=== PATIENT | female | born 1930 | race Caucasian/White ===

== ENCOUNTER 2016-03-04 08:59 | Inpatient (IN) | payer OTHER ==
[~2016-03-04] VITALS: Ht 167.6 cm; Wt 74.4 kg
--- NOTE | ~2016-03-04 | EKG ---
[address] [address] ELECTROCARDIOGRAM REPORT Name: YADIEL SANCHEZ Room #: 170- ADM IN M.R.#: [id number] Admission: 03/04/16 Attend Phys: Kodak Lin MD Discharge: Date of : 32 Report #: [id number] THIS REPORT FOR: //name// [facility] ED Test Date: 2016-03-04 Test Time: 12:34:25 Pat Name: YADIEL SANCHEZ Department: Room: 170 2 Gender: F Client Relationship Consultant: rachel : 1930 Requested By: Stevo Bazzi Order Number: [id number] MD: Sergio Amor Measurements Intervals [place] Rate: 53 P: 64 IN: 204 QRS: -24 QRSD: 99 T: 40 QT: 413 QTc: 388 Interpretive Statements Sinus rhythm Borderline left axis deviation No previous ECG available for comparison Electronically Signed On 03-04-2016 16:11:33 DAM TENDER by Sergio Amor [email or web address] <ELECTRONICALLY SIGNED> By: Sergio Amor MD 03/04/16 1611 1234 1234 Sergio Amor MD /VERONICA
[~2016-03-04 08:59] MED LIST: ACETAMINOPHEN325 M1; ACID CONTROL20 MG; ACTONEL 35 MG35 M1 PO; ACYCLOVIR 400400 MG; ACYCLOVIR 800800 MG PO; ALENDRONATE SOD70 MG PO; AMINO-OPTI-C1000 MG; AMINO-OPTI-C1000 MG PO; AMITRIPTYLINE H25 M2 PO; AMLODIPINE BESYL5 MG PO; ARGINAID PO; ASPIR 8181 MG PO; ASPIRIN81 M2 PO; ATENOLOL 25 MG25 M1 PO; ATENOLOL 50 MG50 M1 PO; ATIVAN0.5 MG PO; B COMPLEX PO; B COMPLEX-VITA1 EACH PO; B12INJ PO; BAYER CHEWABLE81 MG PO; BYSTOLIC 5 MG5 M1 PO; CLEOCIN HCL150 MG PO; CLOBETASOL EMOL15 GM; CLONIDINE0.1 PO; COLACE100 MG; CRANBERRY400 MG PO; CYCLOBENZAPRINE5 MG PO; DILTIAZEM ER180 M1 PO; DONEPEZIL HCL5 MG PO; DOXYCYCLINE 10100 MG PO; ENDOCET 5-3251 EACH PO; ENOXAPARIN40 MG/0.1 SUBQ; ENOXAPARIN60 MG/0.6 SUBQ; FENOFIBRATE160 MG PO; FOSAMAX 70 MG T70 MG PO; GLUCOPHAGE XR500 MG PO; GLUCOPHAGE1000 MG PO; GLUCOSAMINE-MS1 EAC3 PO; INDERAL 20 MG T20 M1 PO; KETODAN 2% FOA554 GM; LISINOPRIL5 MG PO; LOMOTIL TABLET1 EACH PO; LORAZEPAM 1 MG T1 M1 PO; LOVAZA1000 MG; LOVAZA1000 MG PO; LUTEIN20 M1 PO; METFORMIN HCL500 MG PO; METHOCARBAMOL PO; MILK THISTLE200 M1 PO; MIRTAZAPINE7.5 MG PO; MUCINEX TA600 MG/TA2 PO; NEURONTIN 300300 M1 PO; NEURONTIN600 MG PO; NIZORAL120 ML; NOVOLOG100 UNIT/1; ONE DAILY COMP1 EAC1 PO; PANTOPRAZOLE SO40 M1 PO; PERCOCET 5-3251 EACH; PERCOCET 5-3251 EACH PO; PHENERGAN 25 MG25 M1 PO; PRILOSEC 20 MG20 MG PO; PRO-STAT LIQUID30 ML PO; PROBIOTIC1 EAC1 PO; REMERON15 MG; REMERON15 MG PO; RISPERDAL0.5 MG PO; ROBAXIN 750 MG750 M1 PO; ROXICODONE5 M1 PO; SANTYL OINTMENT30 G1 TOP; SSD CREAM 1% 5050 G1 TOP; TAMIFLU75 MG PO; TESSALON PERLE100 M1 PO; THERA-M CAPLET1 EACH PO; TRAMADOL 50 MG50 MG PO; TRIAMTERENE-HC1 EAC2 PO; VITAMIN D-32000 UNIT PO; VITAMINC500 PO; VOLTAREN GEL 1100 G2 TOP; WAL-FEX ALLERG180 MG PO; ZETIA10 MG PO; [UNRECOGNIZED DRUG - OTHER]; [UNRECOGNIZED DRUG - OTHER] PO
[2016-03-04 09:00] VITALS: BP 123/69
[2016-03-04 11:40] LABS: ABSOLUTE NEUTROPHILS 5.2 thou/uL (1.4-8.2); BASOPHILS 0.8 % (0.0-2.0); HEMATOCRIT 35.7 % (37.0-47.0); HEMOGLOBIN 12.1 gm/dL (12.0-15.0); LYMPHOCYTES 17.3 % (24.0-44.0); MCHC 33.8 % (28.0-37.0); MCV 97.7 fL (80.0-100.0); MONOCYTES 6.8 % (1.0-8.0); PLATELET COUNT 207 thou/uL (150-400); POLYS 72.1 % (36.0-66.0); RBC 3.66 mil/uL (4.20-5.00); RDW 14.3 % (10.5-14.5); WBC 7.3 thou/uL (4.0-11.0)
[2016-03-04 11:42] LABS: MANUAL DIFF NO
[2016-03-04 11:47] LABS: CALCIUM 10.1 mg/dL (8.5-10.1); CREATININE 1.5 mg/dL (0.6-1.3)
[2016-03-04 11:48] LABS: POTASSIUM 6.2 mmol/L (3.5-5.1)
[2016-03-04 11:52] VITALS: BP 157/58
[2016-03-04 12:16] LABS: CALCIUM 9.8 mg/dL (8.5-10.1); CREATININE 1.5 mg/dL (0.6-1.3)
[2016-03-04 12:22] LABS: POTASSIUM 6.1 mmol/L (3.5-5.1)
[2016-03-04 13:56] LABS: URINE BILIRUBIN NEGATIVE (Negative); URINE BLOOD NEGATIVE (Negative); URINE COLOR YELLOW; URINE GLUCOSE-RANDOM* NEGATIVE (Negative); URINE KETONES NEGATIVE (Negative); URINE NITRITE NEGATIVE (Negative); URINE PROTEIN (DIPSTICK) NEGATIVE (Negative); URINE UROBILINOGEN 0.2 E.U./dl (0.2-1.0)
[2016-03-04 16:28] VITALS: BP 136/58
[2016-03-04 16:45] VITALS: BP 166/77
[2016-03-04 20:53] VITALS: BP 138/61
[2016-03-05 00:02] VITALS: BP 136/50
[2016-03-05 04:38] VITALS: BP 156/64
[2016-03-05 05:28] LABS: HEMATOCRIT 33.9 % (37.0-47.0); HEMOGLOBIN 11.4 gm/dL (12.0-15.0); MCH 33.6 pg (26.0-34.0); MCHC 33.7 % (28.0-37.0); MCV 99.5 fL (80.0-100.0); RBC 3.4 mil/uL (4.20-5.00); RDW 14.7 % (10.5-14.5); WBC 4.3 thou/uL (4.0-11.0)
[2016-03-05 05:38] LABS: CALCIUM 9.6 mg/dL (8.5-10.1); CREATININE 1.3 mg/dL (0.6-1.3); POTASSIUM 5.5 mmol/L (3.5-5.1)
[2016-03-05] MEDS ORDERED: TRAMADOL 50 MG50 MG PO (05:58)
[2016-03-05] MEDS ORDERED: CHLORTHALIDONE25 MG PO (06:03)
[2016-03-05 08:00] VITALS: BP 134/52
[2016-03-05] MEDS ORDERED: PERCOCET PO (10:26)
[2016-03-05 12:00] VITALS: BP 128/44
== END 2016-03-05 17:00 | disposition home or self-care (01) | DRG 551 ==
LOC: ER 08:59 → EROBS 11:37 → 4S 11:37
PROVIDERS: Hospitalist; Nurse Practitioner
DX: M54.40 Lumbago with sciatica, unspecified side (principal); N17.0 Acute kidney failure with tubular necrosis; M54.9 Dorsalgia, unspecified; M19.90 Unspecified osteoarthritis, unspecified site; E11.9 Type 2 diabetes mellitus without complications; Z96.653 Presence of artificial knee joint, bilateral; E87.5 Hyperkalemia; I10 Essential (primary) hypertension; M47.816 Spondylosis without myelopathy or radiculopathy, lumbar region; W18.39XA Other fall on same level, initial encounter; Z79.899 Other long term (current) drug therapy; Z88.0 Allergy status to penicillin; Z88.6 Allergy status to analgesic agent; Z88.4 Allergy status to anesthetic agent; Z88.1 Allergy status to other antibiotic agents; Z91.040 Latex allergy status; Z88.8 Allergy status to other drugs, medicaments and biological substances; Z91.018 Allergy to other foods; Z87.891 Personal history of nicotine dependence; Y93.89 Activity, other specified; Y92.89 Other specified places as the place of occurrence of the external cause; Y99.8 Other external cause status
CPT/HCPCS: 10102

== ENCOUNTER 2016-04-27 12:28 | Emergency (ER) | payer OTHER ==
[~2016-04-27] VITALS: Ht 160 cm; Wt 74.8 kg
--- NOTE | ~2016-04-27 | EKG ---
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
--- NOTE | ~2016-04-27 | EKG ---
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
[~2016-04-27 12:28] MED LIST changes: +CHLORTHALIDONE25 MG PO; +PERCOCET PO
[2016-04-27 13:34] LABS: ABSOLUTE NEUTROPHILS 4.3 thou/uL (1.4-8.2); BASOPHILS 0.6 % (0.0-2.0); EOSINOPHILS 1.8 % (0.0-3.0); HEMATOCRIT 32.2 % (37.0-47.0); HEMOGLOBIN 10.9 gm/dL (12.0-15.0); LYMPHOCYTES 12.2 % (24.0-44.0); MCH 33.1 pg (26.0-34.0); MCHC 33.9 g/dL (28.0-37.0); MCV 97.8 fL (80.0-100.0); MONOCYTES 7.2 % (1.0-8.0); PLATELET COUNT 188 thou/uL (150-400); POLYS 78.2 % (36.0-66.0); RBC 3.29 mil/uL (4.20-5.00); RDW 13.6 % (10.5-14.5); WBC 5.5 thou/uL (4.0-11.0)
[2016-04-27 13:35] LABS: MANUAL DIFF NO
[2016-04-27 13:42] LABS: ANION GAP 7 mmol/L (7-16); BUN 32 mg/dL (7-18); CALCIUM 9.1 mg/dL (8.5-10.1); CHLORIDE 101 mmol/L (98-107); CO2 27 mmol/L (21-32); CREATININE 1.4 mg/dL (0.6-1.3); GLUCOSE 142 mg/dL (70-99); SODIUM 135 mmol/L (136-145)
[2016-04-27 13:49] LABS: ALBUMIN 3.4 g/dL (3.4-5.0); ALKALINE PHOSPHATASE 43 U/L (46-116); SGOT 35 U/L (15-37); SGPT 29 U/L (30-65); TOTAL BILIRUBIN 0.6 mg/dL (<0.1-1.0); TOTAL PROTEIN 7.2 g/dL (6.4-8.2); TROPONIN-I < 0.04 ng/mL (<0.04-0.07)
== END 2016-04-27 17:12 ==
LOC: ER 12:28
PROVIDERS: Emergency Medicine
DX: R07.9 Chest pain, unspecified (principal); E11.9 Type 2 diabetes mellitus without complications; Z88.5 Allergy status to narcotic agent; Z88.1 Allergy status to other antibiotic agents; Z91.040 Latex allergy status; Z88.0 Allergy status to penicillin; Z88.4 Allergy status to anesthetic agent; Z88.2 Allergy status to sulfonamides; Z87.891 Personal history of nicotine dependence

== ENCOUNTER 2016-05-12 18:46 | Emergency (ER) | payer OTHER ==
[~2016-05-12] VITALS: Ht 167.6 cm; Wt 76.2 kg
== END 2016-05-12 20:40 | disposition home or self-care (01) ==
LOC: ER 18:46
DX: S01.01XA Laceration without foreign body of scalp, initial encounter (principal); M25.512 Pain in left shoulder; E11.9 Type 2 diabetes mellitus without complications; Z96.653 Presence of artificial knee joint, bilateral; Z88.1 Allergy status to other antibiotic agents; Z91.040 Latex allergy status; Z88.0 Allergy status to penicillin; Z88.5 Allergy status to narcotic agent; Z88.8 Allergy status to other drugs, medicaments and biological substances; Z91.018 Allergy to other foods; Z88.4 Allergy status to anesthetic agent; Z87.891 Personal history of nicotine dependence; W01.198A Fall on same level from slipping, tripping and stumbling with subsequent striking against other object, initial encounter; Y93.01 Activity, walking, marching and hiking; Y92.89 Other specified places as the place of occurrence of the external cause; Y99.8 Other external cause status

== ENCOUNTER 2016-09-12 07:53 | Emergency (ER) | payer OTHER ==
[~2016-09-12] VITALS: Ht 167.6 cm; Wt 77.1 kg
[2016-09-12 08:19] LABS: ABSOLUTE NEUTROPHILS 2.2 thou/uL (1.4-8.2); BASOPHILS 1.3 % (0.0-2.0); EOSINOPHILS 3.2 % (0.0-3.0); HEMATOCRIT 34.1 % (37.0-47.0); HEMOGLOBIN 11.6 gm/dL (12.0-15.0); LYMPHOCYTES 28.7 % (24.0-44.0); MCH 33.3 pg (26.0-34.0); MCHC 34.1 g/dL (28.0-37.0); MCV 97.8 fL (80.0-100.0); MONOCYTES 10.4 % (1.0-8.0); PLATELET COUNT 190 thou/uL (150-400); POLYS 56.4 % (36.0-66.0); RBC 3.49 mil/uL (4.20-5.00); WBC 3.9 thou/uL (4.0-11.0)
[2016-09-12 08:20] LABS: MANUAL DIFF NO
[2016-09-12 08:31] LABS: CALCIUM 10.3 mg/dL (8.5-10.1); CREATININE 1.4 mg/dL (0.6-1.0); POTASSIUM 4.2 mmol/L (3.5-5.1)
[2016-09-12 09:24] LABS: URINE BILIRUBIN NEGATIVE (Negative); URINE BLOOD NEGATIVE (Negative); URINE COLOR YELLOW; URINE GLUCOSE-RANDOM* NEGATIVE (Negative); URINE KETONES NEGATIVE (Negative); URINE NITRITE NEGATIVE (Negative); URINE PROTEIN (DIPSTICK) NEGATIVE (Negative); URINE UROBILINOGEN 0.2 E.U./dl (0.2-1.0)
== END 2016-09-12 08:38 | disposition home or self-care (01) ==
LOC: ER 07:53
PROVIDERS: Emergency Medicine
DX: G44.209 Tension-type headache, unspecified, not intractable (principal); M54.2 Cervicalgia; E11.9 Type 2 diabetes mellitus without complications; F10.99 Alcohol use, unspecified with unspecified alcohol-induced disorder; Z96.653 Presence of artificial knee joint, bilateral; Z88.5 Allergy status to narcotic agent; Z88.1 Allergy status to other antibiotic agents; Z91.040 Latex allergy status; Z88.2 Allergy status to sulfonamides; Z88.0 Allergy status to penicillin; Z88.4 Allergy status to anesthetic agent; Z88.8 Allergy status to other drugs, medicaments and biological substances; Z87.891 Personal history of nicotine dependence

== ENCOUNTER 2016-09-23 12:18 | Emergency (ER) | payer OTHER ==
[~2016-09-23] VITALS: Ht 167.6 cm; Wt 76.7 kg
[2016-09-23 12:43] LABS: HEMATOCRIT 32.1 % (37.0-47.0); HEMOGLOBIN 10.6 gm/dL (12.0-15.0); MCH 32.9 pg (26.0-34.0); MCHC 33.2 g/dL (28.0-37.0); MCV 99.2 fL (80.0-100.0); PLATELET COUNT 147 thou/uL (150-400); RBC 3.23 mil/uL (4.20-5.00); WBC 3.6 thou/uL (4.0-11.0)
[2016-09-23 12:45] LABS: MANUAL DIFF YES
[2016-09-23 12:52] LABS: CALCIUM 9.6 mg/dL (8.5-10.1); CREATININE 1.3 mg/dL (0.6-1.0); POTASSIUM 4.2 mmol/L (3.5-5.1)
[2016-09-23 13:30] LABS: ABSOLUTE NEUTROPHILS 1.7 thou/uL (1.4-8.2); ANISOCYTOSIS SLIGHT; TOTAL CELL COUNT 100
[2016-09-23] MEDS ORDERED: REGLAN 10 MG TA10 MG PO (14:00)
== END 2016-09-23 14:32 | disposition home or self-care (01) ==
LOC: ER 12:18
PROVIDERS: Physician Assistant
DX: R51 Headache (principal); E11.9 Type 2 diabetes mellitus without complications; F10.99 Alcohol use, unspecified with unspecified alcohol-induced disorder; Z90.49 Acquired absence of other specified parts of digestive tract; Z96.653 Presence of artificial knee joint, bilateral; Z87.891 Personal history of nicotine dependence; Z88.5 Allergy status to narcotic agent; Z88.1 Allergy status to other antibiotic agents; Z91.040 Latex allergy status; Z91.018 Allergy to other foods; Z88.0 Allergy status to penicillin; Z91.048 Other nonmedicinal substance allergy status; Z88.4 Allergy status to anesthetic agent

== ENCOUNTER 2016-11-01 13:34 | Inpatient (IN) | payer OTHER ==
[~2016-11-01] VITALS: Ht 167.6 cm; Wt 79.4 kg
[~2016-11-01 13:34] MED LIST changes: +REGLAN 10 MG TA10 MG PO
[2016-11-01 13:35] VITALS: BP 161/62
[2016-11-01 14:09] LABS: HEMOGLOBIN 12.1 gm/dL (12.0-15.0); MANUAL DIFF YES; MCH 32.6 pg (26.0-34.0); MCHC 33.6 g/dL (28.0-37.0); MCV 97.1 fL (80.0-100.0); PLATELET COUNT 190 thou/uL (150-400); RBC 3.71 mil/uL (4.20-5.00); RDW 13.2 % (10.5-14.5)
[2016-11-01 14:16] LABS: URINE BILIRUBIN NEGATIVE (Negative); URINE BLOOD NEGATIVE (Negative); URINE COLOR YELLOW; URINE GLUCOSE-RANDOM* NEGATIVE (Negative); URINE KETONES NEGATIVE (Negative); URINE NITRITE NEGATIVE (Negative); URINE PROTEIN (DIPSTICK) 2+ (Negative); URINE SPECIFIC GRAVITY 1.015 (1.003-1.035); URINE UROBILINOGEN 0.2 E.U./dl (0.2-1.0)
[2016-11-01 14:17] LABS: CREATININE 1.3 mg/dL (0.6-1.0)
[2016-11-01 14:21] LABS: BACTERIA None Seen /HPF (None Seen); CASTS None Seen /LPF (None Seen); CRYSTALS None Seen /LPF (None Seen); SQUAMOUS 0-3 Few /LPF (0-3); URINE RBC None Seen /HPF (0-2); URINE WBC 0-5 Rare /HPF (0-5)
[2016-11-01 14:23] LABS: DIRECT BILIRUBIN 0.2 mg/dL (<0.1-0.3); TOTAL BILIRUBIN 0.9 mg/dL (<0.1-1.0); TOTAL PROTEIN 8.2 g/dL (6.4-8.2)
[2016-11-01 14:28] LABS: ABSOLUTE NEUTROPHILS 11.4 thou/uL (1.4-8.2); TOTAL CELL COUNT 100
[2016-11-01 17:00] VITALS: BP 158/62
[2016-11-01 18:04] VITALS: BP 173/83
[2016-11-01 20:51] VITALS: BP 172/73
[2016-11-02 04:15] VITALS: BP 130/55
[2016-11-02 06:40] LABS: HEMATOCRIT 31.6 % (37.0-47.0); HEMOGLOBIN 10.8 gm/dL (12.0-15.0); MCH 33.2 pg (26.0-34.0); MCHC 34.1 g/dL (28.0-37.0); MCV 97.4 fL (80.0-100.0); RBC 3.25 mil/uL (4.20-5.00); RDW 13.4 % (10.5-14.5); WBC 11.6 thou/uL (4.0-11.0)
[2016-11-02 06:54] LABS: CALCIUM 9.1 mg/dL (8.5-10.1); CREATININE 1.2 mg/dL (0.6-1.0); POTASSIUM 3.6 mmol/L (3.5-5.1)
[2016-11-02 08:34] VITALS: BP 144/95
[2016-11-02 16:45] VITALS: BP 128/50
[2016-11-02 20:35] VITALS: BP 146/65
[2016-11-03 05:16] VITALS: BP 150/69
[2016-11-03 08:00] VITALS: BP 170/65
[2016-11-03 16:00] VITALS: BP 160/62
[2016-11-03 19:59] VITALS: BP 163/52
[2016-11-04 04:22] VITALS: BP 157/68
[2016-11-04 04:58] LABS: ABSOLUTE NEUTROPHILS 5.8 thou/uL (1.4-8.2); BASOPHILS 0.3 % (0.0-2.0); LYMPHOCYTES 16.1 % (24.0-44.0); MCH 32.9 pg (26.0-34.0); MCHC 33.5 g/dL (28.0-37.0); MCV 98.1 fL (80.0-100.0); MONOCYTES 7.9 % (1.0-8.0); PLATELET COUNT 182 thou/uL (150-400); POLYS 73.7 % (36.0-66.0); RBC 3.36 mil/uL (4.20-5.00); RDW 13.2 % (10.5-14.5); WBC 7.9 thou/uL (4.0-11.0)
[2016-11-04 05:01] LABS: MANUAL DIFF NO
[2016-11-04 05:05] LABS: CALCIUM 9.3 mg/dL (8.5-10.1); CREATININE 0.8 mg/dL (0.6-1.0); POTASSIUM 3.4 mmol/L (3.5-5.1)
[2016-11-04 08:00] VITALS: BP 147/63
[2016-11-04 12:58] VITALS: BP 142/58
[2016-11-04 16:00] VITALS: BP 138/51
[2016-11-04 19:45] VITALS: BP 163/57
[2016-11-04 20:05] VITALS: BP 152/95
[2016-11-05 04:40] VITALS: BP 170/64
[2016-11-05 05:44] LABS: POTASSIUM 3.6 mmol/L (3.5-5.1)
[2016-11-05 08:00] VITALS: BP 143/52
[2016-11-05] MEDS ORDERED: PROBIOTIC1 EAC1 PO (12:08)
[2016-11-05] MEDS ORDERED: COLACE100 MG PO (12:08)
[2016-11-05] MEDS ORDERED: MIRALAX17 GM PO (12:08)
[2016-11-05] MEDS ORDERED: DOXYCYCLINE 10100 MG PO (12:08)
[2016-11-05] MEDS ORDERED: CEFUROXIME250 MG PO (12:14)
[2016-11-05] MEDS ORDERED: MUCINEX600 MG PO (12:16)
[2016-11-05 12:22] VITALS: BP 143/52
[2016-11-05 14:04] VITALS: BP 143/52
[2016-11-05 14:14] VITALS: BP 143/52
== END 2016-11-05 15:27 | disposition home health service (06) | DRG 871 ==
LOC: ER 13:34 → 4S 15:41 → EROBS 15:41 → 4S 17:00
PROVIDERS: Internal Medicine Endocrinology, Diabetes & Metabolism; Nurse Practitioner
DX: A41.9 Sepsis, unspecified organism (principal); J18.9 Pneumonia, unspecified organism; G92 Toxic encephalopathy; Z96.653 Presence of artificial knee joint, bilateral; F03.90 Unspecified dementia, unspecified severity, without behavioral disturbance, psychotic disturbance, mood disturbance, and anxiety; I10 Essential (primary) hypertension; E87.6 Hypokalemia; M48.00 Spinal stenosis, site unspecified; E11.9 Type 2 diabetes mellitus without complications; Z88.6 Allergy status to analgesic agent; Z88.0 Allergy status to penicillin; Z90.49 Acquired absence of other specified parts of digestive tract; Z88.2 Allergy status to sulfonamides; Z88.8 Allergy status to other drugs, medicaments and biological substances; Z91.040 Latex allergy status; Z87.891 Personal history of nicotine dependence; Z79.82 Long term (current) use of aspirin; Z79.899 Other long term (current) drug therapy
CPT/HCPCS: 10100

== ENCOUNTER → 2017-06-20 | Outpatient (CLI) | payer OTHER ==
[~2017-06-20] VITALS: Ht 165.1 cm; Wt 80.2 kg
[~2017-06-20] MED LIST changes: +AMLODIPINE BESY10 MG PO; -AMLODIPINE BESYL5 MG PO; +CEFUROXIME250 MG PO; +COLACE100 MG PO; +DEMADEX20 MG PO; +LASIX 40 MG TAB40 M2 PO; +MIRALAX17 GM PO; +MUCINEX600 MG PO; +OMEPRAZOLE 20 M20 M1 PO; +ONDANSETRON HCL4 M2 PO; +OXYCONTIN15 MG PO; +POTASSIUM20 PO
--- NOTE | ~2017-06-20 | HPC ---
[facility] [place] [address] PAIN MANAGEMENT CONSULTATION Name: YADIEL SANCHEZ Room #: REG [facility] Lamine#: [id number] Admission: 06/20/17 Attend Phys: Renny Campos DO Discharge: Date of : 32 Report #: [id number] THIS REPORT FOR: //name// CC: CESARIO physician/PCP Renny Campos DATE OF SERVICE: 06/20/2017 The patient is an 87-year-old female, somewhat lost to follow up having been seen back in 10/2015. At that time, she was treated for both cervical and lumbar radiculopathy, spinal stenosis, DJD affecting hands and knees. In the interval since we saw her, she was admitted to the hospital with infection, encephalitis and dementia 11/01/2016 through 11/05/2016. She returns to Pain Clinic today noting increasing pain in her right knee without antecedent trauma and overuse. She is status post bilateral total knee arthroplasty, now greater than a decade ago. PHYSICAL EXAMINATION: Notes a pleasant 87-year-old female. She appears a little more lucid and oriented. BMI is 29.4 kg/m2, blood pressure is 159/72, pulse 61, respirations 20, room air oxygen saturation 97%. Rates the pain 8 on a VAS. She has well-healed surgical scars compatible with bilateral total knee arthroplasties. She has pain in the right knee with range of motion. There is no ballotable edema. There is a little pain with palpation in the superior medial aspect of the knee, though I do not discern any obvious visual abnormalities here. No warmth or erythema is noted. No ballotable edema is noted. Distal strength is symmetric. ASSESSMENT: Right knee pain in a patient status post bilateral total knee arthroplasties, acute onset of pain without antecedent trauma or overuse. RECOMMENDATIONS: We will get x-rays of the right knee AP and lateral to see if there is any obvious loosening of the arthroplasty. If the radiographic exam is fairly unremarkable, we may consider a diagnostic genicular nerve block (proximal medial, proximal lateral, and distal medial genicular nerve). If this gives transient relief, we will consider RFL of same. If, however, she has any abnormalities noted on the x-ray, we will refer to [facility] for consideration for surgical revision. She has prior seen [facility] in regards to her knees, though both knee arthroplasties were done back in [place] now some 10 years ago. Discharged in good and stable condition after approximately 20 [place] [address] PAIN MANAGEMENT CONSULTATION Name: YADIEL SANCHEZ [id number] Admission: 06/20/17 Attend Phys: Renny Campos DO Discharge: Date of : 32 Report #: [id number] with the patient reviewing therapeutic options, interval history, and discussing possible treatments scenarios. <ELECTRONICALLY SIGNED> By: Renny Campos DO 06/24/17 07 1236 2238 Renny Campos DO /m[place]oacano
[2017-06-20 10:23] VITALS: BP 159/72
== END ==
LOC: PAIN 05:38
DX: I70.201 Unspecified atherosclerosis of native arteries of extremities, right leg (principal); M48.00 Spinal stenosis, site unspecified; M19.041 Primary osteoarthritis, right hand; M19.042 Primary osteoarthritis, left hand; Z96.651 Presence of right artificial knee joint

== ENCOUNTER → 2017-07-18 | Outpatient (CLI) | payer OTHER ==
[~2017-07-18] VITALS: Ht 165.1 cm; Wt 81.1 kg
--- NOTE | ~2017-07-18 | HPC ---
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 She was last seen in pain clinic on 07/04/2017. We talked about moving forward with genicular nerve block to help with ongoing nerve pain. She presents to pain clinic today for diagnostic block. She notes pain is worse in the right, rates her subjective pain score is 6 on a VAS. She wished to proceed with genicular nerve block today. We will start on the right side. Follow up next week for reevaluation, consideration for left-sided injection versus RFL of the right side. ASSESSMENT: Chronic knee pain status post total knee arthroplasty. PROCEDURE: Genicular nerve block on the right x 3 (superior medial, superior lateral and proximal aspect of the right medial tibia genicular nerves). DESCRIPTION OF PROCEDURE: After written informed consent was obtained, the patient was placed in supine position on the fluoroscopy suite with a bolster into the right knee. Wide surgical prep and drape was accomplished. Skin wheal with Xylocaine was raised x 3. A 22-gauge stylet needle was placed to contact the distal lateral diaphysis of the femur. A second needle was placed to contact the distal medial diaphysis of the femur. A third needle was placed to contact the proximal medial diaphysis of the tibia. AP projection showed good needle placement adjacent to the bone. Lateral projections showed good needle placement at mid shaft of the femur and tibia respectively. Once a good needle position was assured, 1 mL of a 50:50 mix of 0.5% preservative-free bupivacaine, plus 1.5% preservative-free Xylocaine with 1:200,000 epinephrine was injected. Needle was removed, area was cleansed, Band-Aid was applied. The patient was allowed to ambulate to recovery, monitored for an appropriate period of time. She noted good 50% improvement of baseline pain, pain decreased from 6-3 on a VAS. We asked her to chart her pain score over the next several hours and leave that message on the nurse line. Given 50% relief, we are inclined to move forward with radiofrequency neurolysis. We will defer to the patient if she wants to do the left diagnostic block first or proceed with RFL on the right side at next visit. <ELECTRONICALLY SIGNED> By: Renny Campos DO 07/19/17 0727 1238 1717 Renny Campos DO /nt
[2017-07-18 10:20] VITALS: BP 156/79
== END | disposition home or self-care (01) ==
LOC: PAIN 07-12 11:52
DX: M25.561 Pain in right knee (principal); G89.29 Other chronic pain; M19.041 Primary osteoarthritis, right hand; M19.042 Primary osteoarthritis, left hand; M54.16 Radiculopathy, lumbar region; I10 Essential (primary) hypertension; E11.9 Type 2 diabetes mellitus without complications; N28.9 Disorder of kidney and ureter, unspecified; Z96.651 Presence of right artificial knee joint; Z98.890 Other specified postprocedural states; Z87.891 Personal history of nicotine dependence; Z79.899 Other long term (current) drug therapy; Z88.0 Allergy status to penicillin; Z88.8 Allergy status to other drugs, medicaments and biological substances; Z91.040 Latex allergy status; Z79.82 Long term (current) use of aspirin

== ENCOUNTER 2017-11-17 10:25 | Inpatient (IN) | payer OTHER ==
[2017-11-17] VITALS (7 sets, daily range): BP systolic 148–178; BP diastolic 66–101
[~2017-11-17] VITALS: Ht 167.6 cm; Wt 70.3 kg
--- NOTE | ~2017-11-17 | HC ---
[facility] [place] [address] [address] [place] [address] CONSULTATION Name: YADIEL SANCHEZ Room #: 207-P [facility] IN M.R.#: [id number] Admission: 11/17/17 Attend Phys: Augustin Valentin MD Discharge: 11/18/17 Date of : 32 Report #: [id number] THIS REPORT FOR: //name// CC: CESARIO physician/PCP Augustin Valentin DATE OF SERVICE: 11/18/2017 REASON FOR CONSULTATION: Palpitations. HISTORY OF PRESENT ILLNESS: The patient is an 87-year-old woman who is a patient of Dr. Portillo and Dr. Devante Ann. Her history includes hypertension, diabetes, diastolic heart failure, and paroxysmal supraventricular tachycardia. She was in adventism yesterday and felt "not right." She was seen in the Emergency Department where she was found to be in atrial fibrillation. After treatment with a bolus of Cardizem, she converted pharmacologically and has felt better, back to normal since. She denies chest heaviness or pressure. She reports diffuse total body aches and pains related to her arthritis for which she takes tramadol. She denies orthopnea or paroxysmal nocturnal dyspnea. No history of myocardial infarction, prior stress study in 2013 was nonischemic. ALLERGIES: INCLUDE CIPRO, DOXYCYCLINE, LATEX, PENICILLIN, SULFA, ADHESIVE. MEDICATIONS: Amlodipine 10 mg daily, fenofibrate, metformin, Bystolic 10 mg daily, omeprazole 20 mg daily, torsemide 20 mg daily, potassium 20 mEq daily, Flomax 0.4 mg daily, and tramadol. PAST MEDICAL HISTORY: Medical records have been reviewed and include a history of gait instability with history of falls, reflux disease, hypertension. Actually, she had a nonischemic stress study in 05/2013. Echocardiogram in April demonstrated normal ejection fraction, mild mitral regurgitation, history of type 2 diabetes, PSVT treated with IV adenosine previously, cervical fusion, cholecystectomy. SOCIAL HISTORY: She is a former smoker, lives at [place]. FAMILY HISTORY: Unremarkable for premature coronary artery disease. REVIEW OF SYSTEMS: All systems negative except as that noted above. PHYSICAL EXAMINATION: GENERAL: Reveals a pleasant woman in no distress. VITAL SIGNS: Blood pressure is 160/70, heart rate 78 and regular. She is afebrile. HEENT: There are neither xanthelasma, subcutaneous xanthomata, oral mucosal or digital cyanosis or kyphoscoliosis present. [facility] [address] [place] [address] CONSULTATION Name: YADIEL SANCHEZ Room #: 207-P [facility] IN M.R.#: [id number] Admission: 11/17/17 Attend Phys: Augustin Valentin MD Discharge: 11/18/17 Date of : 32 Report #: [id number] CHEST: Clear to auscultation and percussion. CARDIOVASCULAR: Regular rate and rhythm with a soft systolic murmur at the base. ABDOMEN: Soft and nontender. EXTREMITIES: Without cyanosis or clubbing. Radial pulses are 2+. NEUROLOGIC: She is alert with a nonfocal exam. EKGs, atrial fibrillation with poor R-wave progression. LABORATORY DATA: Sodium 137, potassium 4.0, creatinine 1.5. Troponin 0. White count 5.5, hemoglobin 13, hematocrit 38, platelet count 196. Chest x-ray is normal. IMPRESSION: 1. Paroxysmal atrial fibrillation, now sinus. 2. Hypertension. 3. Diabetes. 4. Dementia. 5. Nonischemic stress study 05/2017; normal ejection fraction. RECOMMENDATIONS: 1. Change from amlodipine to Cardizem. 2. With the patient's memory problems and history of falls with gait instability, I favor aspirin over long-term anticoagulant therapy. At this point, no further testing is needed. Thyroid function studies have been ordered. Thank you for asking me to participate in her care. <ELECTRONICALLY SIGNED> By: Kulwinder Yee MD, FACC 11/26/17 1630 0734 56 Kulwinder Yee MD, FACC /nt
--- NOTE | ~2017-11-17 | EKG ---
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: cw : 1930 Requested By: Jocelyne Velazquez Order Number: [id number] MD: Kulwinder Yee Measurements Intervals [place] Rate: 104 P: NE: QRS: -21 QRSD: 98 T: 70 QT: 347 QTc: 457 Interpretive Statements Atrial fibrillation Borderline left axis deviation Poor R wave progression Compared to ECG 04/27/2016 14:29:53 Atrial fibrillation has replaced sinus rhythm Electronically Signed On 11-17-2017 11:35:18 CDT by Kulwinder Yee [email or web address] <ELECTRONICALLY SIGNED> By: Kulwinder Yee MD, [facility] 11/17/17 1135 1032 1032 Kulwinder Yee MD, FACC /EPI
--- NOTE | ~2017-11-17 | EKG ---
[address] [address] ELECTROCARDIOGRAM REPORT Name: YADIEL SANCHEZ Room #: 207-P ADM IN M.R.#: [id number] Admission: 11/17/17 Attend Phys: Augustin Valentin MD Discharge: Date of : 32 Report #: [id number] THIS REPORT FOR: //name// [facility] Test Date: 2017-11-18 Test Time: 07:32:24 Pat Name: YADIEL SANCHEZ Department: Room: 207 P Gender: F Title Camera Operator: : 1930 Requested By: Augustin Valentin Order Number: [id number] MD: Sergio Amor Measurements Intervals [place] Rate: 59 P: 66 [place]: 202 QRS: -25 QRSD: 104 T: 56 QT: 454 QTc: 450 Interpretive Statements Sinus rhythm Consider left atrial enlargement Borderline left axis deviation Compared to ECG 11/17/2017 10:32:41 Atrial fibrillation no longer present Poor R-wave progression no longer present Electronically Signed On 11-18-2017 8:24:11 CDT by Sergio Amor [email or web address] <ELECTRONICALLY SIGNED> By: Sergio Amor MD 11/18/1724 1 Sergio Amor MD /EPI
[2017-11-17 11:05] LABS: ABSOLUTE NEUTROPHILS 3.7 thou/uL (1.4-8.2); BASOPHILS 0.8 % (0.0-2.0); EOSINOPHILS 1.8 % (0.0-3.0); HEMATOCRIT 38.4 % (37.0-47.0); LYMPHOCYTES 22.2 % (24.0-44.0); MCH 32.9 pg (26.0-34.0); MCHC 33.8 g/dL (28.0-37.0); MCV 97.4 fL (80.0-100.0); MONOCYTES 7.7 % (1.0-8.0); PLATELET COUNT 196 thou/uL (150-400); POLYS 67.5 % (36.0-66.0); RBC 3.94 mil/uL (4.20-5.00); RDW 13.9 % (10.5-14.5); WBC 5.5 thou/uL (4.0-11.0)
[2017-11-17 11:09] LABS: ANION GAP 6 mmol/L (7-16); BUN 46 mg/dL (7-18); CALCIUM 10.5 mg/dL (8.5-10.1); CHLORIDE 98 mmol/L (98-107); CO2 31 mmol/L (21-32); CREATININE 1.5 mg/dL (0.6-1.0); GLUCOSE 153 mg/dL (74-106); SODIUM 135 mmol/L (136-145)
[2017-11-17 11:17] LABS: TROPONIN-I <0.06 ng/mL (<0.06)
[2017-11-17 11:48] LABS: URINE BILIRUBIN NEGATIVE (Negative); URINE BLOOD NEGATIVE (Negative); URINE CLARITY CLEAR; URINE COLOR YELLOW; URINE GLUCOSE-RANDOM* NEGATIVE (Negative); URINE KETONES NEGATIVE (Negative); URINE LEUKOCYTES-REFLEX NEGATIVE (Negative); URINE NITRITE-REFLEX NEGATIVE (Negative); URINE PROTEIN (DIPSTICK) 2+ (Negative); URINE SPECIFIC GRAVITY 1.015 (1.005-1.035); URINE UROBILINOGEN 0.2 E.U./dl (0.2-1.0)
[2017-11-17 12:01] LABS: CASTS None Seen /LPF (None Seen); SQUAMOUS 0-3 Few /LPF (0-3)
[2017-11-17 12:02] LABS: BACTERIA-REFLEX None Seen /HPF (None Seen); CRYSTALS None Seen /LPF (None Seen); URINE RBC 0-2 Rare /HPF (0-2); URINE WBC-REFLEX 0-5 Rare /HPF (0-5)
[2017-11-17] MEDS ORDERED: BYSTOLIC10 MG PO (15:03)
[2017-11-17] MEDS ORDERED: CRANBERRY400 MG PO (15:03)
[2017-11-17] MEDS ORDERED: NEURONTIN 300300 M1 PO (15:05)
[2017-11-17] MEDS ORDERED: ACIDOPHILUS1 EAC4 PO (15:06)
[2017-11-17] MEDS ORDERED: LASIX 40 MG TAB40 M2 PO (15:07)
[2017-11-17] MEDS ORDERED: METFORMIN HCL500 MG PO (15:08)
[2017-11-17] MEDS ORDERED: ROBAXIN 750 MG750 M1 PO ×2 (15:10→15:11)
[2017-11-17] MEDS ORDERED: REGLAN 10 MG TA10 MG PO (15:12)
[2017-11-17] MEDS ORDERED: OMEPRAZOLE20 M1 PO (15:13)
[2017-11-17] MEDS ORDERED: OMEGA-31000 M1 PO (15:13)
[2017-11-17] MEDS ORDERED: POTASSIUM20 PO (15:14)
[2017-11-17] MEDS ORDERED: FLOMAX0.4 MG PO (15:16)
[2017-11-17] MEDS ORDERED: PHENERGAN 25 MG25 M1 PO (15:16)
[2017-11-17] MEDS ORDERED: TRAMADOL 50 MG50 MG PO (15:17)
[2017-11-17] MEDS ORDERED: VOLTAREN GEL 1100 G1 TOP (15:19)
[2017-11-17] MEDS ORDERED: ONDANSETRON HCL4 M2 PO (15:20)
[2017-11-18 07:51] VITALS: BP 174/73
[2017-11-18] MEDS ORDERED: DILTIAZEM 24HR180 M1 PO (08:02)
[2017-11-18] MEDS ORDERED: COZAAR 50 MG TA50 MG PO (08:07)
[2017-11-18 09:12] VITALS: BP 174/73
[2017-11-18 11:28] VITALS: BP 159/108
== END 2017-11-18 11:32 | DRG 682 ==
LOC: ER 10:25 → 2N 12:25 → EROBS 12:25 → 2N 13:44 → ENTRNSPT 11-18 13:15 → EDTRNSPTSTS 11-18 13:54
PROVIDERS: Emergency Medicine
DX: N17.9 Acute kidney failure, unspecified (principal); E43 Unspecified severe protein-calorie malnutrition; I50.32 Chronic diastolic (congestive) heart failure; I13.0 Hypertensive heart and chronic kidney disease with heart failure and stage 1 through stage 4 chronic kidney disease, or unspecified chronic kidney disease; I48.0 Paroxysmal atrial fibrillation; Z96.653 Presence of artificial knee joint, bilateral; M19.90 Unspecified osteoarthritis, unspecified site; K21.9 Gastro-esophageal reflux disease without esophagitis; F03.90 Unspecified dementia, unspecified severity, without behavioral disturbance, psychotic disturbance, mood disturbance, and anxiety; G89.29 Other chronic pain; M48.061 Spinal stenosis, lumbar region without neurogenic claudication; N18.9 Chronic kidney disease, unspecified; E11.22 Type 2 diabetes mellitus with diabetic chronic kidney disease; I08.0 Rheumatic disorders of both mitral and aortic valves; Z60.2 Problems related to living alone; E11.43 Type 2 diabetes mellitus with diabetic autonomic (poly)neuropathy; K31.84 Gastroparesis; T50.2X5A Adverse effect of carbonic-anhydrase inhibitors, benzothiadiazides and other diuretics, initial encounter; Z79.899 Other long term (current) drug therapy; Z79.82 Long term (current) use of aspirin; Z88.8 Allergy status to other drugs, medicaments and biological substances; Z88.2 Allergy status to sulfonamides; Z91.041 Radiographic dye allergy status; Z91.040 Latex allergy status; Y92.89 Other specified places as the place of occurrence of the external cause; Z86.73 Personal history of transient ischemic attack (TIA), and cerebral infarction without residual deficits; Z90.49 Acquired absence of other specified parts of digestive tract; Z91.018 Allergy to other foods; Z87.891 Personal history of nicotine dependence; Z98.1 Arthrodesis status; Z91.81 History of falling; Z82.49 Family history of ischemic heart disease and other diseases of the circulatory system; Z87.01 Personal history of pneumonia (recurrent); Z23 Encounter for immunization
CPT/HCPCS: 10081

== ENCOUNTER 2017-12-07 19:17 | Emergency (ER) | payer OTHER ==
[~2017-12-07] VITALS: Ht 165.1 cm; Wt 77.1 kg
--- NOTE | ~2017-12-07 | EKG ---
[place] [address] [facility] [place] [address] ELECTROCARDIOGRAM REPORT Name: YADIEL SANCHEZ [facility] [id number] Admission: 12/07/17 Attend Phys: Discharge: 12/08/17 Date of : 32 Report #: [id number] THIS REPORT FOR: //name// [facility] ED Test Date: 2017-12-07 Test Time: 19:19:38 Pat Name: YADIEL SANCHEZ Department: Room: 170 2 Gender: F Diamond Merchant: JOSE MANUEL : 1930 Requested By: Jocelyne Velazquez Order Number: [id number] MD: Kulwinder Yee Measurements Intervals [place] Rate: 29 P: 21 VT: 241 QRS: -23 QRSD: 102 T: 31 QT: 522 QTc: 363 Interpretive Statements Marked Sinus bradycardia Prolonged [place] interval Borderline left axis deviation Abnormal R-wave progression, late transition Compared to ECG 11/18/2017 07:32:24 Heart rate has slowed Electronically Signed On 12-09-2017 9:05:08 CDT by Kulwinder Yee [email or web address] <ELECTRONICALLY SIGNED> By: Kulwinder Yee MD, FACC 12/09/17 0905 18 18 Kulwinder Yee MD, [facility] /EPI
--- NOTE | ~2017-12-07 | EKG ---
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
--- NOTE | ~2017-12-07 | EKG ---
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
--- NOTE | ~2017-12-07 | EKG ---
[place] [address] [address] 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 : 1930 Requested By: Jocelyne Velazquez Order Number: [id number] MD: Kulwinder Yee Measurements Intervals [place] Rate: 109 P: ME: QRS: 24 QRSD: 163 T: -10 QT: 393 QTc: 530 Interpretive Statements Atrial fibrillation Right bundle branch block Baseline wander in lead(s) I,II,aVR,aVL,V3 Compared to ECG 11/18/2017 07:32:24 Right bundle-branch block now present Atrial fibrillation has replaced sinus bradycardia Electronically Signed On 12-09-2017 9:08:46 CDT by Kulwinder Yee [email or web address] <ELECTRONICALLY SIGNED> By: Kulwinder Yee MD, FAC 12/09/17 0908 0019 0019 Kulwinder Yee MD, [facility] /EPI
[~2017-12-07 19:17] MED LIST changes: +ACIDOPHILUS1 EAC4 PO; +BYSTOLIC10 MG PO; +COZAAR 50 MG TA50 MG PO; +DILTIAZEM 24HR180 M1 PO; +FLOMAX0.4 MG PO; +OMEGA-31000 M1 PO; +OMEPRAZOLE20 M1 PO; +VOLTAREN GEL 1100 G1 TOP
[2017-12-07 19:19] VITALS: BP 103/51
[2017-12-07 20:31] LABS: ABSOLUTE NEUTROPHILS 4.6 thou/uL (1.4-8.2); BASOPHILS 0.7 % (0.0-2.0); HEMATOCRIT 35.4 % (37.0-47.0); HEMOGLOBIN 12.1 gm/dL (12.0-15.0); LYMPHOCYTES 19.1 % (24.0-44.0); MCH 33.4 pg (26.0-34.0); MCHC 34.1 g/dL (28.0-37.0); MCV 97.8 fL (80.0-100.0); MONOCYTES 7.3 % (1.0-8.0); PLATELET COUNT 170 thou/uL (150-400); POLYS 70.9 % (36.0-66.0); RBC 3.61 mil/uL (4.20-5.00); RDW 13.8 % (10.5-14.5); WBC 6.5 thou/uL (4.0-11.0)
[2017-12-07 20:37] LABS: URINE BILIRUBIN NEGATIVE (Negative); URINE BLOOD 1+ (Negative); URINE CLARITY TURBID; URINE COLOR YELLOW; URINE GLUCOSE-RANDOM* NEGATIVE (Negative); URINE KETONES NEGATIVE (Negative); URINE NITRITE-REFLEX NEGATIVE (Negative); URINE PROTEIN (DIPSTICK) 2+ (Negative); URINE SPECIFIC GRAVITY >= 1.030 (1.005-1.035); URINE UROBILINOGEN 0.2 E.U./dl (0.2-1.0)
[2017-12-07 20:38] LABS: URINE LEUKOCYTES-REFLEX 3+ (Negative)
[2017-12-07 20:40] LABS: ANION GAP 10 mmol/L (7-16); BUN 81 mg/dL (7-18); CALCIUM 9.4 mg/dL (8.5-10.1); CHLORIDE 100 mmol/L (98-107); CO2 25 mmol/L (21-32); CREATININE 2.4 mg/dL (0.6-1.0); GLUCOSE 153 mg/dL (74-106); POTASSIUM 5.3 mmol/L (3.5-5.1); SODIUM 135 mmol/L (136-145)
[2017-12-07 20:44] LABS: BACTERIA-REFLEX >30 Many /HPF (None Seen); CASTS None Seen /LPF (None Seen); CRYSTALS None Seen /LPF (None Seen); SQUAMOUS >10 Many /LPF (0-3); URINE RBC 0-2 Rare /HPF (0-2); URINE WBC-REFLEX >25 Many /HPF (0-5)
[2017-12-07 20:45] LABS: MUCUS 0-3 Light strn/LPF (None Seen)
[2017-12-07 20:49] LABS: MAGNESIUM 2.6 mg/dL (1.8-2.4); TROPONIN-I <0.06 ng/mL (<0.06)
== END 2017-12-08 01:23 | disposition still patient (30) ==
LOC: ER 19:17 → EROBS 22:32 → ER 22:32
PROVIDERS: Emergency Medicine
DX: I46.9 Cardiac arrest, cause unspecified (principal); I95.9 Hypotension, unspecified; T50.905A Adverse effect of unspecified drugs, medicaments and biological substances, initial encounter; Y92.89 Other specified places as the place of occurrence of the external cause